=== PATIENT | female | born 1995 ===

== ENCOUNTER 2020-03-08 15:48 | Inpatient (IN) | payer OTHER ==
[2020-03-08] MEDS ORDERED: Lactated Ringers 1,000 ML IV ONE (15:56)
[2020-03-08] MEDS ORDERED: Betamethasone Acetate/Betamethasone Sod Phosphate 30 MG/5 ML MDV IM ONE (17:09)
[2020-03-08] MEDS ORDERED: NIFEdipine 30 MG Tab.ER PO SCH (17:30)
[2020-03-08] MEDS ORDERED: Lactated Ringers 1,000 ML IV SCH ×2 (17:45→18:45)
--- NOTE | 2020-03-08 18:07 | PCM.LDHP ---
L&D History of Present Illness - General Date of Service: 03/08/20 Admit Problem/Dx: Patient Status Order with Admit Dx/Problem 03/08/20 17:28 Patient Status [ADT] Routine Admission Diagnosis/Problem Admission Diagnosis/Problem Uterine contractions 03/08/20 17:37 Linda is a 24 yo 1-2-2 at 32.5 weeks gestation (RAHUL 04/28/2020) that presents today for C/O uterine contractions starting today at 11 am and increasing in intensity since this am. Patient tolerating well, talking easily during contractions. FHR 150, + accels, moderate variability, appropriate for gestation. Uterine contractions every 2-3 min lasting for 40-60 seconds, moderate upon palpation. SVE completed ~ 2 hours ago 3-/-2, soft, posterior per RN. Patient reports ample movement. Denies vaginal bleeding, LOF, fever, chills, sweats, or any other complaints or concerns at this time. Last seen in office ~1 week ago, TVUS(CL) 4.67 cm, no funneling, stable from prior measurements (4.0 cm, closed (01/04/2020); 4.73 cm, no funneling (01/11/2020). BMZ therapy declined 1 week ago in office. Patient currently taking micronized progesterone 100 mg PO daily, last taken this am. Pertinent history includes: at 34 weeks gestation (4lb 4oz) with PPH w/o transfusion. Source of Information: Patient History Limitations: Reports: No Limitations - History of Present Illness Location, : Reports: Abdomen, Lower back Quality: Reports: Ache, Sharp Pain Score: 4 Improves with: Reports: None Worsens with: Reports: None - Related Data Allergies/Adverse Reactions: Allergies Allergy/AdvReac Type Severity Reaction Status Date / Time aspirin Allergy Swollen Verified 03/08/20 15:54 Eyes Home Medications: Home Meds Pnv No.103/Folic/Om3s/Fish Oil [ Gummies] 1 each PO DAILY 08/08/16 [History] Docusate Sodium [Colace] 100 mg PO BID PRN #0 cap 08/09/16 [Rx] Progesterone, Micronized [Progesterone] 1 cap PO BEDTIME 03/08/20 [History] Past Medical History HEENT History: Reports: Impaired Vision Cardiovascular History: Reports: None Respiratory History: Reports: None Gastrointestinal History: Reports: None Genitourinary History: Reports: None 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: , Spontaneous : 5 Para: 1 LMP (Approximate): Other OB/BYN History: History of PTB at 34 weeks gestation complicated by PPH without transfusion Musculoskeletal History: Reports: None Neurological History: Reports: None Psychiatric History: Reports: Anxiety, Depression, Panic Attack Endocrine/Metabolic History: Reports: None Hematologic History: Reports: None Immunologic History: Reports: None Oncologic (Cancer) History: Reports: None Dermatologic History: Reports: None - Past Surgical History HEENT Surgical History: Reports: Oral Surgery GI Surgical History: Reports: None Female Surgical History: Reports: None Musculoskeletal Surgical History: Reports: None Social & Family History - Family History Cardiac: Reports: High Cholesterol Musculoskeletal: Reports: Arthritis Psychiatric: Reports: Anxiety, Depression, Panic Attack - Tobacco Use Smoking Status *Q: Never Smoker - Caffeine Use Caffeine Use: Reports: Coffee - Alcohol Use Alcohol Use History: No - Recreational Drug Use Recreational Drug Use: No H&P Review of Systems - Review of Systems: Review Of Systems: Comprehensive ROS is negative, except as noted in HPI. General: Reports: No Symptoms HEENT: Reports: No Symptoms Pulmonary: Reports: No Symptoms Cardiovascular: Reports: No Symptoms Gastrointestinal: Reports: No Symptoms Genitourinary: Reports: No Symptoms Musculoskeletal: Reports: No Symptoms, Other (Pain, SEE above) Skin: Reports: No Symptoms Psychiatric: Reports: No Symptoms Neurological: Reports: No Symptoms Hematologic/Lymphatic: Reports: No Symptoms Immunologic: Reports: No Symptoms L&D Exam - Exam Exam: See Below - Vital Signs Vital Signs: BP 120/80 (90), HR 74, T 97.1. Hemodynamically stable, afebrile. Weight: 145 lb - OB Specific Fundal Height In cm: 32 Contraction Duration (sec): 40-60 Contraction Frequency (min): 2-3 Contraction Intensity: Moderate Movement: Active Heart Tones: Present Heart Tones per Min: 150 Heart Rate (FHR) Variability: Moderate (6-25 bmp) Presentation: Vertex (Confirmed via handheld TAUS at bedside.) - Church Score Church Score Cervix Position: Posterior Church Score Consistency: Soft Church Score Effacement: 31-50% Church Score Dilation: 3-4 cm Church Score Infant's Station: -2 Church Score Total: 6 - Exam General: Alert, Oriented, Cooperative HEENT: Conjunctiva Clear, Hearing Intact, Mucosa Moist & Mack, PERRLA Neck: Supple, Trachea Midline Lungs: Clear to Auscultation, Normal Respiratory Effort Cardiovascular: Regular Rate, Regular Rhythm GI/Abdominal Exam: Normal Bowel Sounds, Soft, Non-Tender, No Organomegaly, No Distention Rectal Exam: Deferred Genitourinary: Normal external exam, Normal bimanual exam (SVE completed, membraned intact) Back Exam: Normal Inspection, Full Range of Motion Extremities: Normal Inspection, Normal Range of Motion, Non-Tender, No Pedal Edema, Normal Capillary Refill Skin: Warm, Dry, Intact Neurological: Cranial Nerves Intact, Reflexes Equal Bilateral Psychiatric: Alert, Normal Affect, Normal Mood - Patient Data Lab Results Last 24 hrs: Laboratory Results - last 24 hr 03/08/20 Range/Units 17:10 Urine Color YELLOW Urine Appearance CLEAR Urine pH 7.0 (5.0-8.0) Ur Specific [place] 1.010 (1.001-1.035) Urine Protein NEGATIVE (NEGATIVE) mg/dL Urine Glucose (UA) NEGATIVE (NEGATIVE) mg/dL Urine Ketones NEGATIVE (NEGATIVE) mg/dL Urine Occult Blood NEGATIVE (NEGATIVE) Urine Nitrite NEGATIVE (NEGATIVE) Urine Bilirubin NEGATIVE (NEGATIVE) Urine Urobilinogen 0.2 (<2.0) EU/dL Ur Leukocyte Esterase NEGATIVE (NEGATIVE) - Problem List (1) Uterine contractions at greater than 20 weeks of gestation SNOMED Code(s): 096650273 ICD Code: [id number] - Status: Acute Priority: High Current Visit: Yes (2) 32 weeks gestation of SNOMED Code(s): 2701834 ICD Code: Z3A.32 - 32 WEEKS GESTATION OF Status: Acute Priority: High Current Visit: Yes Problem List Initiated/Reviewed/Updated: Yes Orders Last 24hrs: Active Orders 24 hr Category Date Time Status Patient Status [ADT] Routine ADT 03/08/20 17:28 Ordered NST [ Non Stress Test] [RC] Q12HR Care 03/08/20 17:34 Ordered Uterine Contraction Monitor [RC] Click to Edit Care 03/08/20 17:34 Ordered CULTURE GROUP B STREP [RM] Routine Lab 03/08/20 17:15 Received Betamet Acet/Betamet Na Phos [Celestone Soluspan 6 MG/ Med 03/09/20 17:30 Once ML] 12 mg IM ONETIME ONE Lactated Ringers @ 100 MLS/HR(1,000ml) Med 03/08/20 17:45 Ordered Lactated Ringers [Ringers, Lactated] 1,000 ml IV ASDIRECTED NIFEdipine [Procardia XL] Med 03/08/20 17:30 Ordered 60 mg PO DAILY Uterine Contraction Monitor TOCO [WOMSER] Routine Oth 03/08/20 17:33 Ordered Medication Orders Betamethasone Acet/Betameth SodPhos (Celestone Soluspan 6 Mg/Ml) 12 mg IM ONETIME ONE Stop: 03/09/20 17:31 Lactated Ringer's (Ringers, Lactated) 1,000 mls @ 100 mls/hr IV ASDIRECTED TUNG Nifedipine (Procardia Xl) 60 mg PO DAILY TUNG Assessment/Plan Comment:: Linda is a 24 yo 1-2-2 at 32.5 weeks gestation (RAHUL 04/28/2020) that presents today for C/O uterine contractions starting today at 11 am and increasing in intensity since this am. Patient tolerating well, talking easily during contractions. FHR 150, + accels, moderate variability, appropriate for gestation. Uterine contractions every 2-3 min lasting for 40-60 seconds, moderate upon palpation. SVE completed: 2-3/50/-2, soft, posterior. UA/UC/GBS collected today, results pending. Unable to collect fFN due to recent vaginal exam. 1000 ml LR bolus administered, completed; LR maintenance infusion 100 ml/hr until am. BMZ therapy discussed today, accepts at this time. BMZ Dose #1 administered today (03/08/2020) at 1759. Patient currently taking micronized progesterone 100 mg PO daily, last taken this am, continue daily. Start 60 mg Procardia XL now, continue daily. RN notified to call Dr. Mcmullen with symptoms persist or worsen, verbalizes understanding. Dr. Mcmullen notified and agreeable with POC.
[2020-03-08] MEDS ORDERED: Terbutaline 1 MG/ML SDV SUBCUT PRN (18:23)
[2020-03-08] MEDS ORDERED: Carboprost Tromethamine 250 MCG/1 ML Amp IM PRN (18:42)
[2020-03-08] MEDS ORDERED: Methylergonovine 0.2 MG/1 ML Amp IM PRN (18:42)
[2020-03-08] MEDS ORDERED: Nalbuphine 10 MG/1 ML Vial IVPUSH PRN (18:42)
[2020-03-08] MEDS ORDERED: Sodium Chloride 0.9% 2.5 ML Syringe FLUSH PRN (18:42)
[2020-03-08] MEDS ORDERED: Lidocaine 1% 50 ML MDV INJECT PRN (18:42)
[2020-03-08] MEDS ORDERED: Misoprostol 200 MCG Tab PO PRN (18:42)
[2020-03-08] MEDS ORDERED: Sodium Chloride 0.9% 10 ML SDV IV PRN (18:42)
[2020-03-08] MEDS ORDERED: Butorphanol 1 MG/ML SDV IVPUSH PRN (18:42)
[2020-03-08] MEDS ORDERED: Sodium Chloride 0.9% 10 ML Syringe FLUSH PRN (18:42)
[2020-03-08] MEDS ORDERED: Water For Irrigation,Sterile 1,000 ML Container IRR PRN (18:42)
[2020-03-08] MEDS ORDERED: Tranexamic Acid 1,000 MG in Sodium Chloride 0.9% 100 ML IV PRN (18:42)
[2020-03-08] MEDS ORDERED: Oxytocin/0.9 % Sodium Chloride 30 UNIT/500 ML BAG IV SCH (18:45)
[2020-03-08] MEDS ORDERED: Bupivicaine/fentaNYL/NS 250 ML ONE (18:58)
[2020-03-08] MEDS ORDERED: Ibuprofen 800 MG Tab PO PRN (20:07)
[2020-03-08] MEDS ORDERED: Lanolin 100% Cream 7 GM Tube TOP PRN (20:07)
[2020-03-08] MEDS ORDERED: Acetaminophen 500 MG Tab PO PRN ×2 (20:07)
[2020-03-08] MEDS ORDERED: Ibuprofen 400 MG Tab PO PRN (20:07)
[2020-03-08] MEDS ORDERED: Witch Hazel Medicated Pads 40/Jar TOP PRN (20:07)
[2020-03-08] MEDS ORDERED: Docusate Sodium 100 MG Cap PO PRN (20:07)
[2020-03-08] MEDS ORDERED: Benzocaine/Menthol 20%-0.5% Spray 78 GM Cannister TOP PRN (20:07)
[2020-03-08] MEDS ORDERED: Bisacodyl 10 MG Supp RECTAL PRN (20:07)
[2020-03-08] MEDS ORDERED: oxyCODONE 5 MG Tab PO PRN (20:07)
--- NOTE | 2020-03-08 20:56 | PCM.PREANE ---
Preanesthetic Assessment - Procedure Proposed Procedure: Continuous Labor Epidural - Anesthesia/Transfusion/Family Hx Anesthesia History: Prior Anesthesia Without Reaction Transfusion History: No Prior Transfusion(s) Type of Transfusion Reactions: Reports: Unknown - Review of Systems General: No Symptoms Pulmonary: No Symptoms Cardiovascular: No Symptoms Gastrointestinal: No Symptoms Neurological: No Symptoms Other: Reports: None - Physical Assessment Vital Signs: Last Vital Signs Temp Pulse Resp BP 120/80 03/08/20 18:02 Pulse Ox Height: 5 ft 5 in Weight: 65.771 kg ASA Class: 2 Mental Status: Alert & Oriented x3 Airway Class: Mallampati = 1 Dentition: Reports: Normal Dentition Thyro-Mental Finger Breadths: 3 Mouth Opening Finger Breadths: 3 ROM/Head Extension: Full Lungs: Clear to Auscultation, Normal Respiratory Effort Cardiovascular: Regular Rate, Regular Rhythm - Lab Values: Laboratory Last Values WBC 13.35 K/uL (4.0-11.0) H 03/08/20 19:00 RBC 3.88 M/uL (4.30-5.90) L 03/08/20 19:00 Hgb 11.8 g/dL (12.0-16.0) L 03/08/20 19:00 Hct 34.5 % (36.0-46.0) L 03/08/20 19:00 MCV 88.9 fL (80.0-98.0) 03/08/20 19:00 MCH 30.4 pg (27.0-32.0) 03/08/20 19:00 MCHC 34.2 g/dL (31.0-37.0) 03/08/20 19:00 RDW Std Deviation 38.6 fl (28.0-62.0) 03/08/20 19:00 RDW Coeff of Sade 12 % (11.0-15.0) 03/08/20 19:00 Plt Count 192 K/uL (150-400) 03/08/20 19:00 MPV 10.50 fL (7.40-12.00) 03/08/20 19:00 Nucleated RBC % 0.0 /100WBC 03/08/20 19:00 Nucleated RBCs # 0 K/uL 03/08/20 19:00 Urine Color YELLOW 03/08/20 17:10 Urine Appearance CLEAR 03/08/20 17:10 Urine pH 7.0 (5.0-8.0) 03/08/20 17:10 Ur Specific [place] 1.010 (1.001-1.035) 03/08/20 17:10 Urine Protein NEGATIVE mg/dL (NEGATIVE) 03/08/20 17:10 Urine Glucose (UA) NEGATIVE mg/dL (NEGATIVE) 03/08/20 17:10 Urine Ketones NEGATIVE mg/dL (NEGATIVE) 03/08/20 17:10 Urine Occult Blood NEGATIVE (NEGATIVE) 03/08/20 17:10 Urine Nitrite NEGATIVE (NEGATIVE) 03/08/20 17:10 Urine Bilirubin NEGATIVE (NEGATIVE) 03/08/20 17:10 Urine Urobilinogen 0.2 EU/dL (<2.0) 03/08/20 17:10 Ur Leukocyte Esterase NEGATIVE (NEGATIVE) 03/08/20 17:10 COVID-19 (DELISA) NEGATIVE (NEGATIVE) 03/08/20 18:36 Blood Type A POSITIVE 03/08/20 19:00 Antibody Screen NEGATIVE 03/08/20 19:00 - Allergies Allergies/Adverse Reactions: Allergies Allergy/AdvReac Type Severity Reaction Status Date / Time aspirin Allergy Swollen Verified 03/08/20 15:54 Eyes - Anesthesia Plan Free Text/Narrative:: Continuous Labor Epidural - Acknowledgements Anesthesia Type Planned: Epidural Pt an Appropriate Candidate for the Planned Anesthesia: Yes Alternatives and Risks of Anesthesia Discussed w Pt/Guardian: Yes Pt/Guardian Understands and Agrees with Anesthesia Plan: Yes PreAnesthesia Questionnaire HEENT History: Reports: Impaired Vision Other HEENT History: Wears glasses Cardiovascular History: Reports: None Respiratory History: Reports: None Gastrointestinal History: Reports: None Genitourinary History: Reports: None 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: , Spontaneous : 5 Para: 2 LMP (Approximate): Other OB/BYN History: History of PTB at 34 weeks gestation complicated by PPH without transfusion Musculoskeletal History: Reports: None Neurological History: Reports: None Psychiatric History: Reports: Anxiety, Depression, Panic Attack Endocrine/Metabolic History: Reports: None Hematologic History: Reports: None Immunologic History: Reports: None Oncologic (Cancer) History: Reports: None Dermatologic History: Reports: None - Infectious Disease History Infectious Disease History: Reports: None - Past Surgical History HEENT Surgical History: Reports: Oral Surgery GI Surgical History: Reports: None Female Surgical History: Reports: None Musculoskeletal Surgical History: Reports: None - SUBSTANCE USE Smoking Status *Q: Never Smoker Second Hand Smoke Exposure: No Recreational Drug Use History: No - HOME MEDS Home Medications: Home Meds Pnv No.103/Folic/Om3s/Fish Oil [ Gummies] 1 each PO DAILY 08/08/16 [History] Docusate Sodium [Colace] 100 mg PO BID PRN #0 cap 08/09/16 [Rx] Progesterone, Micronized [Progesterone] 1 cap PO BEDTIME 03/08/20 [History] - CURRENT (IN HOUSE) MEDS Current Meds: Current Medications Acetaminophen (Tylenol Extra Strength) 500 mg PO Q4H PRN PRN Reason: Pain Acetaminophen (Tylenol Extra Strength) 1,000 mg PO Q4H PRN PRN Reason: Pain Benzocaine/Menthol (Dermoplast Pain Relief 20%-0.5% [place]) 0 gm TOP ASDIRECTED PRN PRN Reason: Perineal Comfort Measure Betamethasone Acet/Betameth SodPhos (Celestone Soluspan 6 Mg/Ml) 12 mg IM ONETIME ONE Stop: 03/09/20 17:31 Bisacodyl (Dulcolax) 10 mg RECTAL ONETIME PRN PRN Reason: Constipation Butorphanol Tartrate (Stadol) 1 mg IVPUSH Q1H PRN PRN Reason: Pain Carboprost Tromethamine (Hemabate Ds) 250 mcg IM ASDIRECTED PRN PRN Reason: Post Hemorrhage Docusate Sodium (Colace) 100 mg PO BID PRN PRN Reason: Constipation Emollient Ointment (Lansinoh Hpa) 0 gm TOP ASDIRECTED PRN PRN Reason: Sore Nipples Lactated Ringer's (Ringers, Lactated) 1,000 mls @ 100 mls/hr IV ASDIRECTED [facility] Last Admin: 03/08/20 18:10 Dose: 100 mls/hr Documented by: Lactated Ringer's (Ringers, Lactated) 1,000 mls @ 150 mls/hr IV ASDIRECTED [facility] Last Admin: 03/08/20 19:40 Dose: 150 mls/hr Documented by: Oxytocin/Sodium Chloride (Oxytocin 30 Unit/500 Ml-Ns) 30 unit in 500 mls @ 500 mls/hr IV TITRATE [facility] Last Admin: 03/08/20 20:04 Dose: 500 mls/hr Documented by: Tranexamic Acid 1,000 mg/ (Sodium Chloride) 110 mls @ 660 mls/hr IV ONETIME PRN PRN Reason: Bleeding Ibuprofen (Motrin) 400 mg PO Q4H PRN PRN Reason: Pain Ibuprofen (Motrin) 800 mg PO Q6H PRN PRN Reason: Pain Lidocaine HCl (Xylocaine 1%) 50 ml INJECT ONETIME PRN PRN Reason: Laceration repair Methylergonovine Maleate (Methergine) 0.2 mg IM ASDIRECTED PRN PRN Reason: Post Hemorrhage Misoprostol (Cytotec) 200 mcg PO ONETIME PRN PRN Reason: Post Hemorrhage Nalbuphine HCl (Nubain) 10 mg IVPUSH Q1H PRN PRN Reason: Pain (severe 7-10) Nifedipine (Procardia Xl) 60 mg PO DAILY TUNG Last Admin: 03/08/20 18:02 Dose: 60 mg Documented by: Oxycodone HCl (Oxycodone) 5 mg PO Q2H PRN PRN Reason: Pain Sodium Chloride (Saline Flush) 10 ml FLUSH ASDIRECTED PRN PRN Reason: Keep Vein Open Sodium Chloride (Saline Flush) 2.5 ml FLUSH ASDIRECTED PRN PRN Reason: Keep Vein Open Sodium Chloride (Normal Saline) 10 ml IV ASDIRECTED PRN PRN Reason: IV Use Sterile Water (Sterile Water For Irrigation) 1,000 ml IRR ASDIRECTED PRN PRN Reason: delivery Terbutaline Sulfate (Brethine) 0.25 mg SUBCUT Q4H PRN PRN Reason: Contractions Last Admin: 03/08/20 18:33 Dose: 0.25 mg [facility]ed [facility]: [facility] 1 pad TOP ASDIRECTED PRN PRN Reason: comfort care Discontinued Medications Betamethasone Acet/Betameth SodPhos (Celestone Soluspan 6 Mg/Ml) 12 mg IM ONETIME ONE Stop: 03/08/20 17:10 Last Admin: 03/08/20 17:59 Dose: 12 mg Documented by: Lactated Ringer's (Ringers, Lactated) 1,000 mls @ 999 mls/hr IV .BOLUS ONE Stop: 03/08/20 16:56 Last Admin: 03/08/20 16:26 Dose: 999 mls/hr Documented by: Fentanyl/Bupivacaine HCl (Fentanyl/Bupivacaine/Ns 2 Mcg-0.125% 250 Ml) Confirm Administered Dose 250 mls @ as directed .ROUTE .[facility] Stop: 03/08/20 18:59
--- NOTE | 2020-03-09 07:46 | PCM48HPAN ---
Post Anesthesia Note - EVALUATION WITHIN 48HRS OF ANESTHETIC Vital Signs in Normal Range: Yes Patient Participated in Evaluation: Yes Respiratory Function Stable: Yes Airway Patent: Yes Cardiovascular Function Stable: Yes Hydration Status Stable: Yes Pain Control Satisfactory: Yes Nausea and Vomiting Control Satisfactory: Yes Mental Status Recovered: Yes Vital Signs: Last Vital Signs Temp 36.4 C 03/09/20 05:22 Pulse 64 03/09/20 05:22 Resp 15 03/09/20 05:22 BP 95/52 L 03/09/20 05:22 Pulse Ox 97 03/09/20 05:22 - COMMENTS/OBSERVATIONS Free Text/Narrative:: Denies any complaints at this time
--- NOTE | 2020-03-09 08:50 | PCM.DCSUM1 ---
Discharge Summary - Hospital Course Free Text/Narrative:: Discharge home. Follow up in the clinic in 6 weeks for routine visit. Diagnosis: Stroke: No Modified [place] Scale: No Symptoms at All Modified Mey Scale Score: 0 - Discharge Data Discharge Date: 03/09/20 Discharge Disposition: Home, Self-Care 01 Condition: Good - Referral to Home Health Primary Care Physician: PCP None - Patient Instructions Diet: Regular Diet as Tolerated, Drink 8-10+ Glasses/Day Activity: As Tolerated, No Strenuous Activities, Rest and Relax Today Driving: May Drive Today Showering/Bathing: May Shower Notify Provider of: Fever, Increased Pain, Swelling and Redness, Drainage, Nausea and/or Vomiting - Discharge Plan *PRESCRIPTION DRUG MONITORING PROGRAM REVIEWED*: Not Applicable *COPY OF PRESCRIPTION DRUG MONITORING REPORT IN PATIENT NATASHA: Not Applicable Prescriptions/Med Rec: Ibuprofen [Motrin] 800 mg PO Q6H PRN #90 tablet PRN Reason: Pain Home Medications: Home Meds Pnv No.103/Folic/Om3s/Fish Oil [ Gummies] 1 each PO DAILY 08/08/16 [History] Docusate Sodium [Colace] 100 mg PO BID PRN #0 cap 08/09/16 [Rx] Progesterone, Micronized [Progesterone] 1 cap PO BEDTIME 03/08/20 [History] Ibuprofen [Motrin] 800 mg PO Q6H PRN #90 tablet 03/09/20 [Rx] Oxygen Therapy Mode: Room Air Referrals: [facility] [Outside] Sid Mcmullen MD [Physician] - 04/20/20 2:45 pm - Discharge Summary/Plan Comment DC Time >30 min.: Yes - General Info Date of Service: 03/09/20 Functional Status: Reports: Pain Controlled, Tolerating Diet, Ambulating, Urinating - Review of Systems General: Reports: No Symptoms HEENT: Reports: No Symptoms Pulmonary: Reports: No Symptoms Cardiovascular: Reports: No Symptoms Gastrointestinal: Reports: No Symptoms Genitourinary: Reports: No Symptoms Musculoskeletal: Reports: No Symptoms Skin: Reports: No Symptoms Neurological: Reports: No Symptoms Psychiatric: Reports: No Symptoms - Patient Data Vitals - Most Recent: Last Vital Signs Temp 97.5 F 03/09/20 05:22 Pulse 64 03/09/20 05:22 Resp 15 03/09/20 05:22 BP 95/52 L 03/09/20 05:22 Pulse Ox 97 03/09/20 05:22 Weight - Most Recent: 145 lb Lab Results - Last 24 hrs: Laboratory Results - last 24 hr 03/08/20 03/08/20 03/08/20 Range/Units 17:10 18:36 19:00 WBC 13.35 H (4.0-11.0) K/uL RBC 3.88 L (4.30-5.90) M/uL Hgb 11.8 L (12.0-16.0) g/dL Hct 34.5 L (36.0-46.0) % MCV 88.9 (80.0-98.0) fL MCH 30.4 (27.0-32.0) pg MCHC 34.2 (31.0-37.0) g/dL RDW Std Deviation 38.6 (28.0-62.0) fl RDW Coeff of Sade 12 (11.0-15.0) % Plt Count 192 (150-400) K/uL MPV 10.50 (7.40-12.00) fL Nucleated RBC % 0.0 /100WBC Nucleated RBCs # 0 K/uL Urine Color YELLOW Urine Appearance CLEAR Urine pH 7.0 (5.0-8.0) Ur Specific [place] 1.010 (1.001-1.035) Urine Protein NEGATIVE (NEGATIVE) mg/dL Urine Glucose (UA) NEGATIVE (NEGATIVE) mg/dL Urine Ketones NEGATIVE (NEGATIVE) mg/dL Urine Occult Blood NEGATIVE (NEGATIVE) Urine Nitrite NEGATIVE (NEGATIVE) Urine Bilirubin NEGATIVE (NEGATIVE) Urine Urobilinogen 0.2 (<2.0) EU/dL Ur Leukocyte Esterase NEGATIVE (NEGATIVE) COVID-19 (DELISA) NEGATIVE (NEGATIVE) Blood Type Antibody Screen 03/08/20 03/09/20 Range/Units 19:00 05:25 WBC (4.0-11.0) K/uL RBC (4.30-5.90) M/uL Hgb 10.8 L (12.0-16.0) g/dL Hct 32.0 L (36.0-46.0) % MCV (80.0-98.0) fL MCH (27.0-32.0) pg MCHC (31.0-37.0) g/dL RDW Std Deviation (28.0-62.0) fl RDW Coeff of Sade (11.0-15.0) % Plt Count (150-400) K/uL MPV (7.40-12.00) fL Nucleated RBC % /100WBC Nucleated RBCs # K/uL Urine Color Urine Appearance Urine pH (5.0-8.0) Ur Specific [place] (1.001-1.035) Urine Protein (NEGATIVE) mg/dL Urine Glucose (UA) (NEGATIVE) mg/dL Urine Ketones (NEGATIVE) mg/dL Urine Occult Blood (NEGATIVE) Urine Nitrite (NEGATIVE) Urine Bilirubin (NEGATIVE) Urine Urobilinogen (<2.0) EU/dL Ur Leukocyte Esterase (NEGATIVE) COVID-19 (DELISA) (NEGATIVE) Blood Type A POSITIVE Antibody Screen NEGATIVE Med Orders - Current: Current Medications Acetaminophen (Tylenol Extra Strength) 500 mg PO Q4H PRN PRN Reason: Pain Acetaminophen (Tylenol Extra Strength) 1,000 mg PO Q4H PRN PRN Reason: Pain Benzocaine/Menthol (Dermoplast Pain Relief 20%-0.5% [place]) 0 gm TOP ASDIRECTED PRN PRN Reason: Perineal Comfort Measure Betamethasone Acet/Betameth SodPhos (Celestone Soluspan 6 Mg/Ml) 12 mg IM ONETIME ONE Stop: 03/09/20 17:31 Bisacodyl (Dulcolax) 10 mg RECTAL ONETIME PRN PRN Reason: Constipation Butorphanol Tartrate (Stadol) 1 mg IVPUSH Q1H PRN PRN Reason: Pain Carboprost Tromethamine (Hemabate Ds) 250 mcg IM ASDIRECTED PRN PRN Reason: Post Hemorrhage Docusate Sodium (Colace) 100 mg PO BID PRN PRN Reason: Constipation Emollient Ointment (Lansinoh Hpa) 0 gm TOP ASDIRECTED PRN PRN Reason: Sore Nipples Lactated Ringer's (Ringers, Lactated) 1,000 mls @ 100 mls/hr IV ASDIRECTED [facility] Last Admin: 03/08/20 18:10 Dose: 100 mls/hr Documented by: Lactated Ringer's (Ringers, Lactated) 1,000 mls @ 150 mls/hr IV ASDIRECTED [facility] Last Admin: 03/08/20 19:40 Dose: 150 mls/hr Documented by: Oxytocin/Sodium Chloride (Oxytocin 30 Unit/500 Ml-Ns) 30 unit in 500 mls @ 500 mls/hr IV TITRATE [facility] Last Admin: 03/08/20 20:04 Dose: 500 mls/hr Documented by: Tranexamic Acid 1,000 mg/ (Sodium Chloride) 110 mls @ 660 mls/hr IV ONETIME PRN PRN Reason: Bleeding Ibuprofen (Motrin) 400 mg PO Q4H PRN PRN Reason: Pain Ibuprofen (Motrin) 800 mg PO Q6H PRN PRN Reason: Pain Lidocaine HCl (Xylocaine 1%) 50 ml INJECT ONETIME PRN PRN Reason: Laceration repair Methylergonovine Maleate (Methergine) 0.2 mg IM ASDIRECTED PRN PRN Reason: Post Hemorrhage Misoprostol (Cytotec) 200 mcg PO ONETIME PRN PRN Reason: Post Hemorrhage Nalbuphine HCl (Nubain) 10 mg IVPUSH Q1H PRN PRN Reason: Pain (severe 7-10) Nifedipine (Procardia Xl) 60 mg PO DAILY [facility] Last Admin: 03/08/20 18:02 Dose: 60 mg Documented by: Oxycodone HCl (Oxycodone) 5 mg PO Q2H PRN PRN Reason: Pain Sodium Chloride (Saline Flush) 10 ml FLUSH ASDIRECTED PRN PRN Reason: Keep Vein Open Sodium Chloride (Saline Flush) 2.5 ml FLUSH ASDIRECTED PRN PRN Reason: Keep Vein Open Sodium Chloride (Normal Saline) 10 ml IV ASDIRECTED PRN PRN Reason: IV Use Sterile Water (Sterile Water For Irrigation) 1,000 ml IRR ASDIRECTED PRN PRN Reason: delivery Terbutaline Sulfate (Brethine) 0.25 mg SUBCUT Q4H PRN PRN Reason: Contractions Last Admin: 03/08/20 18:33 Dose: 0.25 mg Documented by: Attila Emerson) 1 pad TOP ASDIRECTED PRN PRN Reason: comfort care Discontinued Medications Betamethasone Acet/Betameth SodPhos (Celestone Soluspan 6 Mg/Ml) 12 mg IM ONETIME ONE Stop: 03/08/20 17:10 Last Admin: 03/08/20 17:59 Dose: 12 mg Documented by: Lactated Ringer's (Ringers, Lactated) 1,000 mls @ 999 mls/hr IV .BOLUS ONE Stop: 03/08/20 16:56 Last Admin: 03/08/20 16:26 Dose: 999 mls/hr Documented by: Fentanyl/Bupivacaine HCl (Fentanyl/Bupivacaine/Ns 2 Mcg-0.125% 250 Ml) Confirm Administered Dose 250 mls @ as directed .ROUTE .STK-[facility] ONE Stop: 03/08/20 18:59 - Exam General: Reports: Alert, Oriented, Cooperative, No Acute Distress Lungs: Reports: Normal Respiratory Effort Cardiovascular: Reports: Regular Rate, Regular Rhythm GI/Abdominal Exam: Soft, Non-Tender (Female) Exam: Deferred Rectal (Female) Exam: Deferred Back Exam: Reports: Normal Inspection, Full Range of Motion Extremities: Normal Inspection, Normal Range of Motion, Non-Tender, Normal Capillary Refill Skin: Reports: Warm, Dry, Intact Neurological: Reports: No New Focal Deficit, Normal Speech, Normal Tone Psy/Mental Status: Reports: Alert, Normal Affect, Normal Mood
--- NOTE | 2020-03-09 09:12 | OR ---
SURGEON: Sid Mcmullen MD DATE OF PROCEDURE: 03/08/2020 Ms. Jones is a 24-year-old patient. She is para 1-1-0-2. She is followed in our clinic in this , and she is followed primarily by our nurse propellant assembler. She has a history of premature labor at 34 weeks with her 2nd child. Her 1st child delivered at term. She was started on progesterone in this , and she was taking it regularly. She is 32 weeks plus. She is presented to Labor and Delivery with uterine contraction. At the time of admission, she was 3 to 4 cm and vertex with a bulging bag of water. We had admitted her to the hospital. We gave her steroid, and we gave her fluid and terbutaline to try stop her contraction; however, the patient progressed rather rapidly to 6 cm and then 9 cm. She had an epidural hoping to slow her labor down until the team is flying from [place]. However, the patient continued to progress rapidly, and she accomplished a vaginal delivery. Bloody amniotic fluid was seen, and a copious amount of blood clot was around the vagina, clinically could indicate that the patient may have an element of placental abruption. However, the side stapler was in attendance of the delivery, and the fetus was male and cried immediately, and the scores and weight are not available, and the resuscitating team commenced to resuscitate the fetus. The placenta delivered manually and was sent for histopathology to confirm abruption. Estimated blood loss is 500 to 600 mL. heart rate was category I until the end when the patient was pushing, where the heart rate decelerated to the 60s, probably due to the abruption. NADYA / CUATE /[id number]
--- NOTE | 2020-03-09 09:14 | PCM.PNPP ---
- General Info Date of Service: 03/09/20 Functional Status: Reports: Pain Controlled - Review of Systems General: Reports: No Symptoms HEENT: Reports: No Symptoms Pulmonary: Reports: No Symptoms Cardiovascular: Reports: No Symptoms Gastrointestinal: Reports: No Symptoms Genitourinary: Reports: No Symptoms Musculoskeletal: Reports: No Symptoms Skin: Reports: No Symptoms Neurological: Reports: No Symptoms Psychiatric: Reports: No Symptoms - Patient Data Vital Signs - Most Recent: Last Vital Signs Temp 36.4 C 03/09/20 05:22 Pulse 64 03/09/20 05:22 Resp 15 03/09/20 05:22 BP 95/52 L 03/09/20 05:22 Pulse Ox 97 03/09/20 05:22 Weight - Most Recent: 65.771 kg Lab Results - Last 24 Hours: Laboratory Results - last 24 hr 03/08/20 03/08/20 03/08/20 Range/Units 17:10 18:36 19:00 WBC 13.35 H (4.0-11.0) K/uL RBC 3.88 L (4.30-5.90) M/uL Hgb 11.8 L (12.0-16.0) g/dL Hct 34.5 L (36.0-46.0) % MCV 88.9 (80.0-98.0) fL MCH 30.4 (27.0-32.0) pg MCHC 34.2 (31.0-37.0) g/dL RDW Std Deviation 38.6 (28.0-62.0) fl RDW Coeff of Sade 12 (11.0-15.0) % Plt Count 192 (150-400) K/uL MPV 10.50 (7.40-12.00) fL Nucleated RBC % 0.0 /100WBC Nucleated RBCs # 0 K/uL Urine Color YELLOW Urine Appearance CLEAR Urine pH 7.0 (5.0-8.0) Ur Specific Fleming 1.010 (1.001-1.035) Urine Protein NEGATIVE (NEGATIVE) mg/dL Urine Glucose (UA) NEGATIVE (NEGATIVE) mg/dL Urine Ketones NEGATIVE (NEGATIVE) mg/dL Urine Occult Blood NEGATIVE (NEGATIVE) Urine Nitrite NEGATIVE (NEGATIVE) Urine Bilirubin NEGATIVE (NEGATIVE) Urine Urobilinogen 0.2 (<2.0) EU/dL Ur Leukocyte Esterase NEGATIVE (NEGATIVE) COVID-19 (DELISA) NEGATIVE (NEGATIVE) Blood Type Antibody Screen 03/08/20 03/09/20 Range/Units 19:00 05:25 WBC (4.0-11.0) K/uL RBC (4.30-5.90) M/uL Hgb 10.8 L (12.0-16.0) g/dL Hct 32.0 L (36.0-46.0) % MCV (80.0-98.0) fL MCH (27.0-32.0) pg MCHC (31.0-37.0) g/dL RDW Std Deviation (28.0-62.0) fl RDW Coeff of Sade (11.0-15.0) % Plt Count (150-400) K/uL MPV (7.40-12.00) fL Nucleated RBC % /100WBC Nucleated RBCs # K/uL Urine Color Urine Appearance Urine pH (5.0-8.0) Ur Specific Fleming (1.001-1.035) Urine Protein (NEGATIVE) mg/dL Urine Glucose (UA) (NEGATIVE) mg/dL Urine Ketones (NEGATIVE) mg/dL Urine Occult Blood (NEGATIVE) Urine Nitrite (NEGATIVE) Urine Bilirubin (NEGATIVE) Urine Urobilinogen (<2.0) EU/dL Ur Leukocyte Esterase (NEGATIVE) COVID-19 (DELISA) (NEGATIVE) Blood Type A POSITIVE Antibody Screen NEGATIVE Med Orders - Current: Current Medications Acetaminophen (Tylenol Extra Strength) 500 mg PO Q4H PRN PRN Reason: Pain Acetaminophen (Tylenol Extra Strength) 1,000 mg PO Q4H PRN PRN Reason: Pain Benzocaine/Menthol (Dermoplast Pain Relief 20%-0.5% [place]) 0 gm TOP ASDIRECTED PRN PRN Reason: Perineal Comfort Measure Betamethasone Acet/Betameth SodPhos (Celestone Soluspan 6 Mg/Ml) 12 mg IM ONETIME ONE Stop: 03/09/20 17:31 Bisacodyl (Dulcolax) 10 mg RECTAL ONETIME PRN PRN Reason: Constipation Butorphanol Tartrate (Stadol) 1 mg IVPUSH Q1H PRN PRN Reason: Pain Carboprost Tromethamine (Hemabate Ds) 250 mcg IM ASDIRECTED PRN PRN Reason: Post Hemorrhage Docusate Sodium (Colace) 100 mg PO BID PRN PRN Reason: Constipation Emollient Ointment (Lansinoh Hpa) 0 gm TOP ASDIRECTED PRN PRN Reason: Sore Nipples Lactated Ringer's (Ringers, Lactated) 1,000 mls @ 100 mls/hr IV ASDIRECTED [facility] Last Admin: 03/08/20 18:10 Dose: 100 mls/hr Documented by: Lactated Ringer's (Ringers, Lactated) 1,000 mls @ 150 mls/hr IV ASDIRECTED [facility] Last Admin: 03/08/20 19:40 Dose: 150 mls/hr Documented by: Oxytocin/Sodium Chloride (Oxytocin 30 Unit/500 Ml-Ns) 30 unit in 500 mls @ 500 mls/hr IV TITRATE [facility] Last Admin: 03/08/20 20:04 Dose: 500 mls/hr Documented by: Tranexamic Acid 1,000 mg/ (Sodium Chloride) 110 mls @ 660 mls/hr IV ONETIME PRN PRN Reason: Bleeding Ibuprofen (Motrin) 400 mg PO Q4H PRN PRN Reason: Pain Ibuprofen (Motrin) 800 mg PO Q6H PRN PRN Reason: Pain Lidocaine HCl (Xylocaine 1%) 50 ml INJECT ONETIME PRN PRN Reason: Laceration repair Methylergonovine Maleate (Methergine) 0.2 mg IM ASDIRECTED PRN PRN Reason: Post Hemorrhage Misoprostol (Cytotec) 200 mcg PO ONETIME PRN PRN Reason: Post Hemorrhage Nalbuphine HCl (Nubain) 10 mg IVPUSH Q1H PRN PRN Reason: Pain (severe 7-10) Nifedipine (Procardia Xl) 60 mg PO DAILY [facility] Last Admin: 03/08/20 18:02 Dose: 60 mg Documented by: Oxycodone HCl (Oxycodone) 5 mg PO Q2H PRN PRN Reason: Pain Sodium Chloride (Saline Flush) 10 ml FLUSH ASDIRECTED PRN PRN Reason: Keep Vein Open Sodium Chloride (Saline Flush) 2.5 ml FLUSH ASDIRECTED PRN PRN Reason: Keep Vein Open Sodium Chloride (Normal Saline) 10 ml IV ASDIRECTED PRN PRN Reason: IV Use Sterile Water (Sterile Water For Irrigation) 1,000 ml IRR ASDIRECTED PRN PRN Reason: delivery Terbutaline Sulfate (Brethine) 0.25 mg SUBCUT Q4H PRN PRN Reason: Contractions Last Admin: 03/08/20 18:33 Dose: 0.25 mg [facility]ed [facility]: [facility] 1 pad TOP ASDIRECTED PRN PRN Reason: comfort care Discontinued Medications Betamethasone Acet/Betameth SodPhos (Celestone Soluspan 6 Mg/Ml) 12 mg IM ONETIME ONE Stop: 03/08/20 17:10 Last Admin: 03/08/20 17:59 Dose: 12 mg Documented by: Lactated Ringer's (Ringers, Lactated) 1,000 mls @ 999 mls/hr IV .BOLUS ONE Stop: 03/08/20 16:56 Last Admin: 03/08/20 16:26 Dose: 999 mls/hr Documented by: Fentanyl/Bupivacaine HCl (Fentanyl/Bupivacaine/Ns 2 Mcg-0.125% 250 Ml) Confirm Administered Dose 250 mls @ as directed .ROUTE .STK-MED ONE Stop: 03/08/20 18:59 - Infant Interaction Infant Disposition, : in Room with Family Interaction: Holding Infant Feeding: Attempted ; Nursed Fair/Poor Support Person: - Exam General: Alert, Oriented HEENT: Pupils Equal Neck: Supple Lungs: Clear to Auscultation, Normal Respiratory Effort Cardiovascular: Regular Rate, Regular Rhythm GI/Abdominal Exam: Normal Bowel Sounds, Soft, Non-Tender, No Organomegaly, No Distention, No Abnormal Bruit, No Mass, Pelvis Stable Extremities: Normal Inspection, Normal Range of Motion, Non-Tender, No Pedal Edema, Normal Capillary Refill Skin: Warm, Dry, Intact Wound/Incisions: Healing Well Neurological: No New Focal Deficit Psy/Mental Status: Alert, Normal Affect, Normal Mood - Problem List Review Problem List Initiated/Reviewed/Updated: Yes - My Orders Last 24 Hours: My Active Orders 03/08/20 18:42 Heart Tones [RC] CONTINUOUS Non Stress Test [RC] PER UNIT ROUTINE May Shower [RC] ASDIRECTED Notify Provider [RC] PRN Up ad Siria [RC] ASDIRECTED Vaginal Exam [RC] PRN Vital Signs [RC] PER UNIT ROUTINE Butorphanol [Stadol] 1 mg IVPUSH Q1H PRN Carboprost Tromethamine [Hemabate DS] 250 mcg IM ASDIRECTED PRN Lidocaine 1% [Xylocaine 1%] 50 ml INJECT ONETIME PRN Methylergonovine [Methergine] 0.2 mg IM ASDIRECTED PRN Nalbuphine [Nubain] 10 mg IVPUSH Q1H PRN Sodium Chloride 0.9% [Normal Saline] 10 ml IV ASDIRECTED PRN Sodium Chloride 0.9% [Saline Flush] 10 ml FLUSH ASDIRECTED PRN Sodium Chloride 0.9% [Saline Flush] 2.5 ml FLUSH ASDIRECTED PRN Tranexamic Acid [Cyklokapron] 1,000 mg Sodium Chloride 0.9% [Normal Saline] 100 ml IV ONETIME Water For Irrigation,Sterile [Sterile Water for Irrigation] 1,000 ml IRR ASDIRECTED PRN miSOPROStoL [Cytotec] 200 mcg PO ONETIME PRN Scalp Electrode [WOMSER] Per Unit Routine Peripheral IV Insertion Adult [OM.PC] Routine Resuscitation Status Routine 03/08/20 18:45 Lactated Ringers [Ringers, Lactated] 1,000 ml IV ASDIRECTED Oxytocin/0.9 % Sodium Chloride [Oxytocin 30 Unit/500 ML-NS] 30 unit in 500 ml IV TITRATE 03/08/20 19:00 RPR (SYPHILIS SERO) W/ RFLX [REF] Routine 03/08/20 20:07 Patient Status [ADT] Routine May Shower [RC] ASDIRECTED Up ad Siria [RC] ASDIRECTED Vital Signs [RC] PER UNIT ROUTINE Acetaminophen [Tylenol Extra Strength] 1,000 mg PO Q4H PRN Acetaminophen [Tylenol Extra Strength] 500 mg PO Q4H PRN Benzocaine/Menthol [Dermoplast Pain Relief 20%-0.5% [place]] 0 gm TOP ASDIRECTED PRN Docusate Sodium [Colace] 100 mg PO BID PRN Ibuprofen [Motrin] 400 mg PO Q4H PRN Ibuprofen [Motrin] 800 mg PO Q6H PRN Lanolin [Lansinoh HPA] See Dose Instructions TOP ASDIRECTED PRN bisacodyL [Dulcolax] 10 mg RECTAL ONETIME PRN oxyCODONE 5 mg PO Q2H PRN witch Jose [Tucks] 1 pad TOP ASDIRECTED PRN Assess Lochia [WOMSER] Per Unit Routine Assess Uterine Involution [WOMSER] Per Unit Routine Peripheral IV Discontinue [OM.PC] Routine - Assessment Assessment:: Status post normal spontaneous vaginal delivery patient is doing well. Liver happen at 32 weeks and the baby transferred to patient expressed her desire to go home there is no contraindication for her to go home today - Plan Plan:: Linda is a 24 yo 1-2-2 at 32.5 weeks gestation (RAHUL 04[birth year]28/2020) that presents today for C/O uterine contractions starting today at 11 am and increasing in intensity since this am. Patient tolerating well, talking easily during contractions. FHR 150, + accels, moderate variability, appropriate for gestation. Uterine contractions every 2-3 min lasting for 40-60 seconds, moderate upon palpation. SVE completed: 2-350/-2, soft, posterior. UA/UC/GBS collected today, results pending. Unable to collect fFN due to recent vaginal exam. 1000 ml LR bolus administered, completed; LR maintenance infusion 100 ml/hr until am. BMZ therapy discussed today, accepts at this time. BMZ Dose #1 administered today (03/08/2020) at 1759. Patient currently taking micronized progesterone 100 mg PO daily, last taken this am, continue daily. Start 60 mg Procardia XL now, continue daily. RN notified to call Dr. Mcmullen with symptoms persist or worsen, verbalizes understanding. Dr. Mcmullen notified and agreeable with POC.
[2020-03-09 09:23] VITALS: BP 116/72; PULSE 72
[2020-03-09] MEDS ORDERED: Betamethasone Acetate/Betamethasone Sod Phosphate 30 MG/5 ML MDV IM ONE (17:30)
== END 2020-03-09 09:40 | disposition home or self-care (01) | DRG 805 ==
LOC: MW.OBCHECK 15:48 → MW.OB 15:54 → MW.OBCHECK 17:28 → MW.OB 17:28 → OBSVTOIN 20:00 → MW.OB 22:04
PROVIDERS: ADMIT Obstetrics & Gynecology; ATTEND Obstetrics & Gynecology
PROC: 10E0XZZ Delivery of Products of Conception, External Approach (ICD-10-PCS; principal; 2020-03-08)
PROC: 3E0R3BZ Introduction of Anesthetic Agent into Spinal Canal, Percutaneous Approach (ICD-10-PCS; 2020-03-08)
DX: O60.14X0 Preterm labor third trimester with preterm delivery third trimester, not applicable or unspecified (principal); O41.1230 Chorioamnionitis, third trimester, not applicable or unspecified; Z37.0 Single live birth; O45.93 Premature separation of placenta, unspecified, third trimester; Z3A.34 34 weeks gestation of pregnancy; Z20.828 Contact with and (suspected) exposure to other viral communicable diseases
CPT/HCPCS: 01967; 36415; 51702; 59025; 59409; 81003; 85014; 85018; 85027; 86592; 86850; 86900; 86901; 87081; 88307; A9270-GY; J0702; J2590; J3105; J7120; U0002

== ENCOUNTER 2021-06-21 20:28 | Observation (INO) | payer OTHER ==
[2021-06-21] MEDS ORDERED: Sodium Chloride 0.9% 1,000 ML IV STA (20:56)
[2021-06-21] MEDS ORDERED: Sodium Chloride 0.9% 10 ML Syringe FLUSH PRN (21:02)
[2021-06-21] MEDS ORDERED: Sodium Chloride 0.9% 2.5 ML Syringe FLUSH PRN (21:02)
[2021-06-21] MEDS: Sodium Chloride 0.9% 1,000 ML IV ONE ×2 (21:05→22:23)
--- NOTE | 2021-06-21 21:05 | EDM.PDOC ---
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 She has been bleeding off and on for weeks. She had an ultrasound at 3 PM today. She was told she might have a placenta previa and she is 12 weeks . She was told the baby is more active than expected and this is abnormal according to her. She saw Dr. Chahal in the clinic. The patient has bled quite heavily and heavier than a period for 2 days. She is orthostatic and near syncopal or syncopal tonight. She is diaphoretic. Review of systems: As per history of present illness and below otherwise all systems reviewed and negative. Past medical history: As per history of present illness and as reviewed below otherwise noncontributory. Surgical history: As per history of present illness and as reviewed below otherwise noncontributory. Social history: No reported history of drug or alcohol abuse. Family history: As per history of present illness and as reviewed below otherwise noncon tributory. Physical exam: Constitutional - well developed, well-nourished and in no acute distress HEENT - normocephalic, no evidence of trauma - external nose and mouth normal - no mass in neck and no JVD - mucosae moist EYES - full EOM, PERRL, no icterus - no evidence of inflammation, injection, or drainage Respiratory - no respiratory distress, equal bilateral expansion, lungs clear to auscultation and no abnormal lung sounds Cardiovascular - Regular Rhythm with S1 and S2 appreciated and no murmur, gallop or rub. GI - abdomen soft without distension or organomegaly - normal bowel sounds - no guard or rebound Musculoskeletal no gross deformity of long bones or joints - no tenderness, swelling or edema Neurologic - Alert and oriented times four - CN II-XII grossly intact - motor s ensory and coordination symmetrically normal Psychiatric - appropriate mood and affect with normal thought content Hematologic - No petechiae or purpura - mucosa appropriate color and sclera not pale - normal nail bed color and refill Integument -pale and diaphoretic. No rash or evidence of trauma - normal turgor Diagnostics: [] Therapeutics: [] Impression: [] Plan: [] Definitive disposition and diagnosis as appropriate pending reevaluation and review of above. Abdomen Pain Score (Numeric/FACES): 5 - Related Data Allergies Allergy/AdvReac Type Severity Reaction Status Date / Time aspirin Allergy Swollen Verified 06/21/21 20:39 Eyes Home Meds: Home Meds Pnv No.103/Folic/Om3s/Fish Oil [ Gummies] 1 each PO DAILY 08/08/16 [History] Docusate Sodium [Colace] 100 mg PO BID PRN #0 cap 08/09/16 [Rx] Progesterone, Micronized [Progesterone] 1 cap PO BEDTIME 03/08/20 [History] Ibuprofen [Motrin] 800 mg PO Q6H PRN #90 tablet 03/09/20 [Rx] Past Medical History HEENT History: Reports: Impaired Vision Other HEENT History: Wears glasses Cardiovascular History: Reports: None Respiratory History: Reports: None Gastrointestinal History: Reports: None Genitourinary History: Reports: None PUBLIC RELATIONS ACCOUNT EXECUTIVE History: Reports: , Spontaneous Other PUBLIC RELATIONS ACCOUNT EXECUTIVE History: History of PTB at 34 weeks gestation complicated by PPH without transfusion. g 7 p 4, has had several early miscarriages Musculoskeletal History: Reports: None Neurological History: Reports: None Psychiatric History: Reports: Anxiety, Depression, Panic Attack Endocrine/Metabolic History: Reports: None Hematologic History: Reports: None Immunologic History: Reports: None Oncologic (Cancer) History: Reports: None Dermatologic History: Reports: None - Infectious Disease History Infectious Disease History: Reports: None - Past Surgical History HEENT Surgical History: Reports: Oral Surgery GI Surgical History: Reports: None Female Surgical History: Reports: None Musculoskeletal Surgical History: Reports: None Social & Family History - Family History HEENT: Reports: Impaired Vision Cardiac: Reports: High Cholesterol Respiratory: Reports: None GI: Reports: None : Reports: None OBGYN: Reports: Musculoskeletal: Reports: Arthritis Neurological: Reports: None Psychiatric: Reports: Anxiety, Depression, Panic Attack Endocrine/Metabolic: Reports: None Hematologic: Reports: None Immunologic: Reports: None Dermatologic: Reports: None Oncologic: Reports: None - Tobacco Use Tobacco Use Status *Q: Never Tobacco User Second Hand Smoke Exposure: No - Caffeine Use Caffeine Use: Reports: Coffee - Recreational Drug Use Recreational Drug Use: No ED ROS GENERAL - Review of Systems Review Of Systems: Comprehensive ROS is negative, except as noted in HPI. ED EXAM, GENERAL - Physical Exam Exam: See Below Free Text/Narrative:: My physical exam is in the HPI Course - Vital Signs Last Recorded V/S: Last Vital Signs Temp 36.2 C 06/21/21 20:29 Pulse 92 06/21/21 21:30 Resp 16 06/21/21 21:30 BP 119/67 06/21/21 21:30 Pulse Ox 99 06/21/21 21:30 - Orders/Labs/Meds Orders: Active Orders 24 hr Category Date Time Status OB 1st Tri Sgl 1st Gest [US] Stat Exams 06/21/21 21:14 Taken Sodium Chloride 0.9% [Saline Flush] Med 06/21/21 21:02 Active 10 ml FLUSH ASDIRECTED PRN Sodium Chloride 0.9% [Saline Flush] Med 06/21/21 21:02 Active 2.5 ml FLUSH ASDIRECTED PRN Saline Lock Insert [OM.PC] Stat Oth 06/21/21 21:02 Ordered Medication Orders Sodium Chloride (Sodium Chloride 0.9% 10 Ml Syringe) 10 ml FLUSH ASDIRECTED PRN PRN Reason: Keep Vein Open Last Admin: 06/21/21 22:23 Dose: 10 ml Documented by: THOMPSON Sodium Chloride (Sodium Chloride 0.9% 2.5 Ml Syringe) 2.5 ml FLUSH ASDIRECTED PRN PRN Reason: Keep Vein Open Last Admin: 06/21/21 22:23 Dose: 2.5 ml Documented by: THOMPSON Labs: Laboratory Tests 06/21/21 06/21/21 06/21/21 Range/Units 20:38 20:38 21:00 WBC 8.66 (4.0-11.0) K/uL RBC 3.86 L (4.30-5.90) M/uL Hgb 11.3 L (12.0-16.0) g/dL Hct 32.5 L (36.0-46.0) % MCV 84.2 (80.0-98.0) fL MCH 29.3 (27.0-32.0) pg MCHC 34.8 (31.0-37.0) g/dL RDW Std Deviation 37.2 (28.0-62.0) fl RDW Coeff of Sade 12 (11.0-15.0) % Plt Count 269 (150-400) K/uL MPV 10.10 (7.40-12.00) fL Neut % (Auto) 64.3 (48.0-80.0) % Lymph % (Auto) 28.4 (16.0-40.0) % [place] % (Auto) 5.7 (0.0-15.0) % Eos % (Auto) 1.4 (0.0-7.0) % Baso % (Auto) 0.2 (0.0-1.5) % Neut # (Auto) 5.6 (1.4-5.7) K/uL Lymph # (Auto) 2.5 H (0.6-2.4) K/uL [place] # (Auto) 0.5 (0.0-0.8) K/uL Eos # (Auto) 0.1 (0.0-0.7) K/uL Baso # (Auto) 0.0 (0.0-0.1) K/uL Nucleated RBC % 0.0 /100WBC Nucleated RBCs # 0 K/uL SARS-CoV-2 RNA (DELISA) POSITIVE H (NEGATIVE) Blood Type A POSITIVE Antibody Screen NEGATIVE Meds: Medications Generic Name Dose Route Start Last Admin Trade Name Freq PRN Reason Stop Dose Admin Sodium Chloride 10 ml 06/21/21 21:02 06/21/21 22:23 Sodium Chloride 0.9% 10 Ml Syringe FLUSH 10 ml ASDIRECTED PRN Administration Keep Vein Open Sodium Chloride 2.5 ml 06/21/21 21:02 06/21/21 22:23 Sodium Chloride 0.9% 2.5 Ml Syringe FLUSH 2.5 ml ASDIRECTED PRN Administration Keep Vein Open Discontinued Medications Generic Name Dose Route Start Last Admin Trade Name Freq PRN Reason Stop Dose Admin Sodium Chloride 1,000 mls @ 999 mls/hr 06/21/21 20:56 06/21/21 21:04 Normal Saline IV 06/21/21 21:56 999 mls/hr NOW STA Administration Sodium Chloride 1,000 mls @ 1,000 mls/hr 06/21/21 21:02 06/21/21 22:23 Normal Saline IV 06/21/21 22:01 1,000 mls/hr .Bolus ONE Administration - Re-Assessments/Exams Free Text/Narrative Re-Assessment/Exam: 06/21/21 21:06 Dr. Chahal was contacted when the patient was first assessed and will attend the patient immediately. 06/21/21 22:14 Patient returned from ultrasound in a wheelchair and was passing out. We put her in a stretcher in [facility] [facility] became normal again. Discussed with Dr. Chahal. The senior wind turbine technician did not see the baby which was obviously very active at 12 weeks earlier in the day according to Dr. Chahal. Apparently the patient's had a complete miscarriage. Dr. Chahal agreed that we should watch the patient overnight in the hospital. She agreed to accept the patient on the OB service as an observation patient. Patient vital signs are stable and her bleeding is minimal now. Departure - Departure Time of Disposition: 22:45 Disposition: Refer to Observation Condition: Good Clinical Impression: Complete , Near syncope - Discharge Information Referrals: PCP,None [Primary Care Provider] - Forms: ED Department Discharge Sepsis Event Note (ED) - Evaluation Sepsis Screening Result: No Definite Risk - Focused Exam Vital Signs: Vital Signs Temp Pulse Resp BP Pulse Ox 06/21/21 21:30 92 16 119/67 99 06/21/21 21:00 67 16 122/99 H 96 06/21/21 20:29 36.2 C 144 H 16 126/83 100 - My Orders Last 24 Hours: My Active Orders 06/21/21 21:02 Sodium Chloride 0.9% [Saline Flush] 10 ml FLUSH ASDIRECTED PRN Sodium Chloride 0.9% [Saline Flush] 2.5 ml FLUSH ASDIRECTED PRN Saline Lock Insert [OM.PC] Stat 06/21/21 21:14 OB 1st Tri Sgl 1st Gest [US] Stat - Assessment/Plan Last 24 Hours: My Active Orders 06/21/21 21:02 Sodium Chloride 0.9% [Saline Flush] 10 ml FLUSH ASDIRECTED PRN Sodium Chloride 0.9% [Saline Flush] 2.5 ml FLUSH ASDIRECTED PRN Saline Lock Insert [OM.PC] Stat 06/21/21 21:14 OB 1st Tri Sgl 1st Gest [US] Stat
--- NOTE | 2021-06-21 22:56 | US ---
INDICATION: Heavy vaginal bleeding and 12 week TECHNIQUE: Ultrasound OB pelvis transvaginal. Real time cantor scale imaging of the pelvis was performed. COMPARISON: None FINDINGS: Gestational Sac: No intrauterine gestational sac or pole is identified. Uterus: 11 x 7.2 cm. The visualized myometrium appears normal. The endometrium complex is thickened and heterogeneous in appearance, measuring 27 mm. No definite vascularity of the endometrial complex is seen. This may be due to a large amount of blood products. Pelvis: The ovaries are of normal size. No adnexal masses are identified. No significant ascites noted. IMPRESSION: 1. No intrauterine IUP is identified and most likely due to a spontaneous miscarriage given the reported history of a normal ultrasound 1 week ago. The uterine cavity is heterogeneous in appearance and distended which may be due to a large amount of blood products. 2. Clinical and imaging follow-up is recommended to exclude the less likely possibility of retained products of conception. Dictated by Juan Judge MD @ 06/21/2021 10:51:24 PM Dictated by: Juan Judge MD @ 06/21/2021 22:54:47 (Electronically Signed)
[2021-06-21] MEDS ORDERED: Ibuprofen 600 MG Tab PO PRN (23:53)
[2021-06-21] MEDS ORDERED: Acetaminophen 500 MG Tab PO PRN (23:54)
--- NOTE | 2021-06-22 13:46 | PCM.LDHP ---
L&D History of Present Illness - General Date of Service: 06/21/21 Admit Problem/Dx: Patient Status Order with Admit Dx/Problem 06/21/21 22:46 Admission Status [Patient Status] [ADT] Stat Admission Diagnosis/Problem Admission Diagnosis/Problem Vaginal bleeding Source of Information: Patient History Limitations: Reports: No Limitations - History of Present Illness Introduction:: 25yo @ ~11wGA who presented with heavy vaginal bleeding, passing clots, and a few episodes of syncopes at home and in the ER. Patient has been bleeding since the beginning of her , light bleeding and sometimes heavy. She was seen by different providers several times, including MFM in [facility]. Last visit was 06/21/21 during which a viable fetus was identified, with normal HR and CRL @ 11w5d matching with the LMP dating. Patient reports when she returned home, a few hours later bleeding became heavy, and she had a few episodes of syncope. Thus she was brought to the ER by her partner. otherwise uncomplicated. Patient reports labs and other w/up were ordered by [facility] in [place] and were inconclusive. OB US in the ER revealed empty uterus. - Related Data Allergies/Adverse Reactions: Allergies Allergy/AdvReac Type Severity Reaction Status Date / Time aspirin Allergy Swollen Verified 06/21/21 20:39 Eyes Home Medications: Home Meds Pnv No.103/Folic/Om3s/Fish Oil [ Gummies] 1 each PO DAILY 08/08/16 [History] Docusate Sodium [Colace] 100 mg PO BID PRN #0 cap 08/09/16 [Rx] Progesterone, Micronized [Progesterone] 1 cap PO BEDTIME 03/08/20 [History] Ibuprofen [Motrin] 800 mg PO Q6H PRN #90 tablet 03/09/20 [Rx] Past Medical History HEENT History: Reports: Impaired Vision Other HEENT History: Wears glasses Cardiovascular History: Reports: None Respiratory History: Reports: None Gastrointestinal History: Reports: None Genitourinary History: Reports: None [employer] History: Reports: , Spontaneous Other OB/BYN History: History of PTB at 34 weeks gestation complicated by PPH without transfusion. g 7 p 4, has had several early miscarriages Musculoskeletal History: Reports: None Neurological History: Reports: None Psychiatric History: Reports: Anxiety, Depression, Panic Attack Endocrine/Metabolic History: Reports: None Hematologic History: Reports: None Immunologic History: Reports: None Oncologic (Cancer) History: Reports: None Dermatologic History: Reports: None - Infectious Disease History Infectious Disease History: Reports: None - Past Surgical History HEENT Surgical History: Reports: Oral Surgery GI Surgical History: Reports: None Female Surgical History: Reports: None Musculoskeletal Surgical History: Reports: None Social & Family History - Family History HEENT: Reports: Impaired Vision Cardiac: Reports: High Cholesterol Respiratory: Reports: None GI: Reports: None : Reports: None OBGYN: Reports: Musculoskeletal: Reports: Arthritis Neurological: Reports: None Psychiatric: Reports: Anxiety, Bipolar, Depression, Panic Attack Endocrine/Metabolic: Reports: None Hematologic: Reports: None Immunologic: Reports: None Dermatologic: Reports: None Oncologic: Reports: None - Tobacco Use Tobacco Use Status *Q: Never Tobacco User Second Hand Smoke Exposure: No - Caffeine Use Caffeine Use: Reports: Coffee, Tea - Recreational Drug Use Recreational Drug Use: No H&P Review of Systems - Review of Systems: Review Of Systems: See Below General: Reports: No Symptoms HEENT: Reports: No Symptoms Pulmonary: Reports: No Symptoms Cardiovascular: Reports: No Symptoms Gastrointestinal: Reports: No Symptoms Genitourinary: Reports: No Symptoms Musculoskeletal: Reports: No Symptoms Skin: Reports: No Symptoms Psychiatric: Reports: No Symptoms Neurological: Reports: No Symptoms Hematologic/Lymphatic: Reports: No Symptoms Immunologic: Reports: No Symptoms L&D Exam - Exam Exam: See Below - Vital Signs Vital Signs: Last Vital Signs Temp 97.3 F 06/22/21 07:40 Pulse 92 06/22/21 07:40 Resp 15 06/22/21 07:40 BP 95/56 L 06/22/21 07:40 Pulse Ox 98 06/22/21 07:45 Weight: 57.606 kg - Exam General: Alert, Oriented Lungs: Normal Respiratory Effort Cardiovascular: Regular Rate Psychiatric: Alert, Normal Affect, Normal Mood - Patient Data Lab Results Last 24 hrs: Laboratory Results - last 24 hr 06/21/21 06/21/21 06/21/21 Range/Units 20:38 20:38 21:00 WBC 8.66 (4.0-11.0) K/uL RBC 3.86 L (4.30-5.90) M/uL Hgb 11.3 L (12.0-16.0) g/dL Hct 32.5 L (36.0-46.0) % MCV 84.2 (80.0-98.0) fL MCH 29.3 (27.0-32.0) pg MCHC 34.8 (31.0-37.0) g/dL RDW Std Deviation 37.2 (28.0-62.0) fl RDW Coeff of Sade 12 (11.0-15.0) % Plt Count 269 (150-400) K/uL MPV 10.10 (7.40-12.00) fL Neut % (Auto) 64.3 (48.0-80.0) % Lymph % (Auto) 28.4 (16.0-40.0) % [place] % (Auto) 5.7 (0.0-15.0) % Eos % (Auto) 1.4 (0.0-7.0) % Baso % (Auto) 0.2 (0.0-1.5) % Neut # (Auto) 5.6 (1.4-5.7) K/uL Lymph # (Auto) 2.5 H (0.6-2.4) K/uL [place] # (Auto) 0.5 (0.0-0.8) K/uL Eos # (Auto) 0.1 (0.0-0.7) K/uL Baso # (Auto) 0.0 (0.0-0.1) K/uL Nucleated RBC % 0.0 /100WBC Nucleated RBCs # 0 K/uL SARS-CoV-2 RNA (DELISA) POSITIVE H (NEGATIVE) Blood Type A POSITIVE Antibody Screen NEGATIVE 06/22/21 Range/Units 05:41 WBC (4.0-11.0) K/uL RBC (4.30-5.90) M/uL Hgb 7.1 L (12.0-16.0) g/dL Hct 20.9 L (36.0-46.0) % MCV (80.0-98.0) fL MCH (27.0-32.0) pg MCHC (31.0-37.0) g/dL RDW Std Deviation (28.0-62.0) fl RDW Coeff of Sade (11.0-15.0) % Plt Count (150-400) K/uL MPV (7.40-12.00) fL Neut % (Auto) (48.0-80.0) % Lymph % (Auto) (16.0-40.0) % [place] % (Auto) (0.0-15.0) % Eos % (Auto) (0.0-7.0) % Baso % (Auto) (0.0-1.5) % Neut # (Auto) (1.4-5.7) K/uL Lymph # (Auto) (0.6-2.4) K/uL [place] # (Auto) (0.0-0.8) K/uL Eos # (Auto) (0.0-0.7) K/uL Baso # (Auto) (0.0-0.1) K/uL Nucleated RBC % /100WBC Nucleated RBCs # K/uL SARS-CoV-2 RNA (DELISA) (NEGATIVE) Blood Type Antibody Screen Result Diagrams: 06/22/21 05:41 - Problem List (1) Spontaneous at 8 to 28 weeks gestation SNOMED Code(s): 874123561 ICD Code: O03.9 - COMPLETE OR UNSP SPONTANEOUS WITHOUT COMPLICATION Status: Acute Problem List Initiated/Reviewed/Updated: Yes Orders Last 24hrs: Active Orders 24 hr Category Date Time Status Admission Status [Patient Status] [ADT] Stat ADT 06/21/21 22:46 Active Antiembolic Devices [RC] PER UNIT ROUTINE Care 06/21/21 23:52 Active Regular Diet [DIET] Diet 06/22/21 Breakfast Active Acetaminophen [Tylenol Extra Strength] Med 06/21/21 23:54 Active 500 mg PO Q4H PRN Ibuprofen [Motrin] Med 06/21/21 23:53 Active 600 mg PO Q6H PRN Sodium Chloride 0.9% [Saline Flush] Med 06/21/21 21:02 Active 10 ml FLUSH ASDIRECTED PRN Sodium Chloride 0.9% [Saline Flush] Med 06/21/21 21:02 Active 2.5 ml FLUSH ASDIRECTED PRN SCD [Sequential Compression Device] [OM.PC] Routine Oth 06/21/21 23:52 Ordered Saline Lock Insert [OM.PC] Stat Oth 06/21/21 21:02 Ordered Medication Orders Acetaminophen (Acetaminophen 500 Mg Tab) 500 mg PO Q4H PRN PRN Reason: Cramping Ibuprofen (Ibuprofen 600 Mg Tab) 600 mg PO Q6H PRN PRN Reason: Cramping Sodium Chloride (Sodium Chloride 0.9% 10 Ml Syringe) 10 ml FLUSH ASDIRECTED PRN PRN Reason: Keep Vein Open Last Admin: 06/21/21 22:23 Dose: 10 ml Documented by: THOMPSON Sodium Chloride (Sodium Chloride 0.9% 2.5 Ml Syringe) 2.5 ml FLUSH ASDIRECTED PRN PRN Reason: Keep Vein Open Last Admin: 06/21/21 22:23 Dose: 2.5 ml Documented by: THOMPSON Assessment/Plan Comment:: 25yo admitted with spontaneous @ ~11wGA. Patient with syncopes, likely due to hypovolemia from blood loss P: Admit to L&D for obs fluid replacement with NS Vaginal bleeding improved, now light. Will continue to monitor Repeat H/H in the morning
--- NOTE | 2021-06-22 13:47 | PCM.DCSUM1 ---
Discharge Summary - Hospital Course Free Text/Narrative:: 25yo admitted with spontaneous @ ~11wGA. Patient with syncopes, likely due to hypovolemia from blood loss. Patient received IV fluid replacement with improvment of her BPs and HR. Also denies lightheadedness and dizziness. Hgb at 7.1 Patient declines blood or iron transfusion. Prefers oral iron. Understand risks and benefits Diagnosis: Stroke: No - Discharge Data Discharge Date: 06/22/21 Discharge Disposition: Home, Self-Care 01 Condition: Good - Referral to Home Health Primary Care Physician: PCP None - Patient Instructions Diet: Regular Diet as Tolerated Activity: As Tolerated - Discharge Plan *PRESCRIPTION DRUG MONITORING PROGRAM REVIEWED*: Not Applicable *COPY OF PRESCRIPTION DRUG MONITORING REPORT IN PATIENT NATASHA: Not Applicable Home Medications: Home Meds Pnv No.103/Folic/Om3s/Fish Oil [ Gummies] 1 each PO DAILY 08/08/16 [History] Docusate Sodium [Colace] 100 mg PO BID PRN #0 cap 08/09/16 [Rx] Progesterone, Micronized [Progesterone] 1 cap PO BEDTIME 03/08/20 [History] Ibuprofen [Motrin] 800 mg PO Q6H PRN #90 tablet 03/09/20 [Rx] Patient Handouts: Iron Deficiency Anemia, Adult, Iron-Rich Diet, Managing Loss Forms: ED Department Discharge Referrals: Isabel Coreas MD [Physician] - 06/27/21 10:00 am (Bring insurance and ID cards with you to your appointment. Masks are required.) - Discharge Summary/Plan Comment DC Time >30 min.: Yes Total # of Minutes for Discharge Time: >30mns - General Info Date of Service: 06/22/21 Admission Dx/Problem (Free Text: Patient Status Order with Admit Dx/Problem 06/21/21 22:46 Admission Status [Patient Status] [ADT] Stat Admission Diagnosis/Problem Admission Diagnosis/Problem Vaginal bleeding Functional Status: Reports: Pain Controlled - Review of Systems General: Reports: No Symptoms HEENT: Reports: No Symptoms Pulmonary: Reports: No Symptoms Cardiovascular: Reports: No Symptoms Gastrointestinal: Reports: No Symptoms Genitourinary: Reports: No Symptoms Musculoskeletal: Reports: No Symptoms Skin: Reports: No Symptoms Neurological: Reports: No Symptoms Psychiatric: Reports: No Symptoms - Patient Data Vitals - Most Recent: Last Vital Signs Temp 97.3 F 06/22/21 07:40 Pulse 92 06/22/21 07:40 Resp 15 06/22/21 07:40 BP 95/56 L 06/22/21 07:40 Pulse Ox 98 06/22/21 07:45 Weight - Most Recent: 57.606 kg I&O - Last 24 hours: Intake & Output 06/21/21 06/22/21 06/22/21 22:59 06:59 14:59 Output Total 100 Balance -100 Lab Results - Last 24 hrs: Laboratory Results - last 24 hr 06/21/21 06/21/21 06/21/21 Range/Units 20:38 20:38 21:00 WBC 8.66 (4.0-11.0) K/uL RBC 3.86 L (4.30-5.90) M/uL Hgb 11.3 L (12.0-16.0) g/dL Hct 32.5 L (36.0-46.0) % MCV 84.2 (80.0-98.0) fL MCH 29.3 (27.0-32.0) pg MCHC 34.8 (31.0-37.0) g/dL RDW Std Deviation 37.2 (28.0-62.0) fl RDW Coeff of Sade 12 (11.0-15.0) % Plt Count 269 (150-400) K/uL MPV 10.10 (7.40-12.00) fL Neut % (Auto) 64.3 (48.0-80.0) % Lymph % (Auto) 28.4 (16.0-40.0) % [place] % (Auto) 5.7 (0.0-15.0) % Eos % (Auto) 1.4 (0.0-7.0) % Baso % (Auto) 0.2 (0.0-1.5) % Neut # (Auto) 5.6 (1.4-5.7) K/uL Lymph # (Auto) 2.5 H (0.6-2.4) K/uL [place] # (Auto) 0.5 (0.0-0.8) K/uL Eos # (Auto) 0.1 (0.0-0.7) K/uL Baso # (Auto) 0.0 (0.0-0.1) K/uL Nucleated RBC % 0.0 /100WBC Nucleated RBCs # 0 K/uL SARS-CoV-2 RNA (DELISA) POSITIVE H (NEGATIVE) Blood Type A POSITIVE Antibody Screen NEGATIVE 06/22/21 Range/Units 05:41 WBC (4.0-11.0) K/uL RBC (4.30-5.90) M/uL Hgb 7.1 L (12.0-16.0) g/dL Hct 20.9 L (36.0-46.0) % MCV (80.0-98.0) fL MCH (27.0-32.0) pg MCHC (31.0-37.0) g/dL RDW Std Deviation (28.0-62.0) fl RDW Coeff of Sade (11.0-15.0) % Plt Count (150-400) K/uL MPV (7.40-12.00) fL Neut % (Auto) (48.0-80.0) % Lymph % (Auto) (16.0-40.0) % [place] % (Auto) (0.0-15.0) % Eos % (Auto) (0.0-7.0) % Baso % (Auto) (0.0-1.5) % Neut # (Auto) (1.4-5.7) K/uL Lymph # (Auto) (0.6-2.4) K/uL [place] # (Auto) (0.0-0.8) K/uL Eos # (Auto) (0.0-0.7) K/uL Baso # (Auto) (0.0-0.1) K/uL Nucleated RBC % /100WBC Nucleated RBCs # K/uL SARS-CoV-2 RNA (DELISA) (NEGATIVE) Blood Type Antibody Screen Med Orders - Current: Current Medications Acetaminophen (Acetaminophen 500 Mg Tab) 500 mg PO Q4H PRN PRN Reason: Cramping Ibuprofen (Ibuprofen 600 Mg Tab) 600 mg PO Q6H PRN PRN Reason: Cramping Sodium Chloride (Sodium Chloride 0.9% 10 Ml Syringe) 10 ml FLUSH ASDIRECTED PRN PRN Reason: Keep Vein Open Last Admin: 06/21/21 22:23 Dose: 10 ml Documented by: Sodium Chloride (Sodium Chloride 0.9% 2.5 Ml Syringe) 2.5 ml FLUSH ASDIRECTED PRN PRN Reason: Keep Vein Open Last Admin: 06/21/21 22:23 Dose: 2.5 ml Documented by: Discontinued Medications Sodium Chloride (Normal Saline) 1,000 mls @ 999 mls/hr IV NOW STA Stop: 06/21/21 21:56 Last Admin: 06/21/21 21:04 Dose: 999 mls/hr Documented by: Sodium Chloride (Normal Saline) 1,000 mls @ 1,000 mls/hr IV .Bolus ONE Stop: 06/21/21 22:01 Last Admin: 06/21/21 22:23 Dose: 1,000 mls/hr Documented by: - Exam General: Reports: Alert, Oriented, No Acute Distress Lungs: Reports: Normal Respiratory Effort Cardiovascular: Reports: Regular Rate GI/Abdominal Exam: Soft, Non-Tender Extremities: Normal Inspection Psy/Mental Status: Reports: Alert, Normal Affect, Normal Mood
[2021-06-22 14:52] VITALS: BP 105/56; PULSE 93
== END 2021-06-22 14:37 | disposition home or self-care (01) ==
LOC: MW.ED 20:28 → UNDOADMOB 22:43 → MW.OB 22:43
PROVIDERS: ADMIT Obstetrics & Gynecology Obstetrics; ATTEND Obstetrics & Gynecology Obstetrics
DX: O03.9 Complete or unspecified spontaneous abortion without complication (principal); O26.811 Pregnancy related exhaustion and fatigue, first trimester; Z88.8 Allergy status to other drugs, medicaments and biological substances; Z79.899 Other long term (current) drug therapy; Z20.822 Contact with and (suspected) exposure to COVID-19
CPT/HCPCS: 36415; 76801; 85014; 85018; 85025; 86850; 86900; 86901; 87635; 99285; G0378; J7030; U0002